=== PATIENT | female | born 2000 | race American Indian/Alaskan Native ===

== ENCOUNTER 2020-12-24 23:35 | Emergency (ER) | payer OTHER ==
[2020-12-25 00:46] VITALS: BP 127/90
[2020-12-25] MEDS ORDERED: IBUPROFEN 800 MG TAB PO ONE (00:46)
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
[2020-12-25 02:53] LABS: HCG Qualitative,Urine Negative (Negative)
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
--- NOTE | 2020-12-25 03:19 | XRay Report ---
XR spine lumbosacral 2-3V HISTORY: Lower vertebral tenderness COMPARISON: None. TECHNIQUE: 2 view(s) of the lumbar spine obtained. FINDINGS: Vertebrae: Normal alignment. Vertebral body heights are preserved. Spondylosis:Disc space heights are preserved. IMPRESSION: 1. No significant abnormality of the lumbar spine. Signer Name: Ishaan Galvan MD Signed: 12/25/2020 3:14 AM Workstation Name: [id number]
== END 2020-12-25 03:57 | disposition home or self-care (01) ==
LOC: ED 23:35
DX: S39.012A Strain of muscle, fascia and tendon of lower back, initial encounter (principal); S29.011A Strain of muscle and tendon of front wall of thorax, initial encounter; Z79.1 Long term (current) use of non-steroidal anti-inflammatories (NSAID); Z79.899 Other long term (current) drug therapy; V49.49XA Driver injured in collision with other motor vehicles in traffic accident, initial encounter; Y93.89 Activity, other specified; Y92.410 Unspecified street and highway as the place of occurrence of the external cause; Y99.8 Other external cause status
CPT/HCPCS: 71046; 72100; 81025